=== PATIENT | female | born 2005 | race Caucasian/White ===

== ENCOUNTER → 2024-09-04 09:28 | Outpatient (REF) | payer OTHER, SELFPAY | LOC: RCS 09:28 | PROVIDERS: ATTENDING PHYSICIAN Family Medicine | DX: R55 Syncope and collapse (principal) | CPT/HCPCS: 93225; 93226 ==

== ENCOUNTER → 2024-09-12 07:24 | Outpatient (REF) | payer OTHER, SELFPAY | LOC: RCS 07:24 | PROVIDERS: ATTENDING PHYSICIAN Family Medicine | DX: R55 Syncope and collapse (principal) | CPT/HCPCS: 93306 ==